=== PATIENT | female | born 2000 | race Caucasian/White ===

== ENCOUNTER 2020-05-04 12:46 | Outpatient (CLI) | payer BC, OTHER, SELFPAY ==
--- NOTE | ~2020-05-04 | US_ITS ---
EXAMINATION: US pelvic complete w TV DATE: 05/04/2020 13:27 INDICATION: Pelvic pain Comparison:No prior studies for comparison. TECHNIQUE: Multiple transabdominal and endovaginal sonographic images of the pelvis performed. FINDINGS: The uterus measures 7.8 x 4.7 x 3.7 cm. The endometrial complex measures 5 mm. The right ovary measures 2.7 x 2 x 2.2 cm and the left ovary measures 2.7 x 2.1 x 1.6 cm. There are small follicles in each ovary. There is trace free fluid in the pelvis. There are no abnormal masses seen on either side. IMPRESSION: 1. Unremarkable pelvic ultrasound Reviewed, dictated and finalized at location B.
== END 2020-05-04 12:47 | disposition home or self-care (01) ==
LOC: ANHIMG 12:51
PROVIDERS: PCP Family Medicine; Visit Provider Obstetrics & Gynecology
DX: R10.2 Pelvic and perineal pain (principal)
CPT/HCPCS: 76830; 76856

== ENCOUNTER 2022-04-18 16:36 | Emergency (ER) | payer OTHER, BC, SELFPAY ==
[2022-04-18 17:41] VITALS: BP 132/70; PULSE 76; RESP 16; TEMP 36.3; O2SAT 100
--- NOTE | 2022-04-18 18:18 | ECG_ITS ---
Measurements Intervals [place] Rate: 64 P: 31 TX: 154 QRS: 60 QRSD: 90 T: 46 QT: 402 QTc: 415 Interpretive Statements SINUS RHYTHM NO PREVIOUS ECG AVAILABLE FOR COMPARISON Electronically Signed On 04-19-2022 17:11:30 CDT by Mike Lawson M.D.
--- NOTE | 2022-04-18 18:19 | ED.HA ---
HPI - Headache General Chief Complaint: Headache Stated Complaint: RAYA 2 weeks Time Seen by Provider: 04/18/22 18:00 Source: patient Mode of arrival: ambulatory Limitations: no limitations History of Present Illness HPI Narrative: Patient is a 22-year-old female who presents the ED with report of a persistent headache for the last 2 weeks. Patient reports she woke up 2 weeks ago with a headache in her right-sided head. She states pain has been persistent since then. Denies any worsening of the pain over the last 2 weeks. She has tried aspirin and ibuprofen at home without much relief. She has not taken anything for pain today. Intermittent photophobia, nausea, dizziness, lightheadedness, and room spinning sensation associated with the headache. Denies any vomiting, fevers, neck pain, abdominal pain, vision changes, weakness, numbness. Related Data Home Medications Medication Instructions Recorded Confirmed No Home Medications 03/02/21 04/18/22 Allergies Allergy/AdvReac Type Severity Reaction Status Date / Time No Known Allergies Allergy Unknown Verified 04/18/22 18:01 Review of Systems Review of Systems: CONSTITUTIONAL: Denies fever, chills, or sweats. EYES: Reports photophobia. Denies visual changes. GASTROINTESTINAL: Reports nausea. Denies abdominal pain, vomiting. MUSCULOSKELETAL: Denies neck pain, back pain. NEUROLOGIC: Reports RAYA, dizziness, lightheadedness. Denies syncope, numbness, or weakness. All systems reviewed & are unremarkable except as noted in HPI and below PMFSH Past Medical History Medical History No pertinent past medical history Surgical History Surgical History (Updated 04/18/22 @ 18:34 by Anuradha Mcconnell PA-C) No pertinent past surgical history Family History Family History Mother Hypertension Patient's mother is in good health Father Patient's father is in good health Sibling Patient's brother is in good health Grandparent Lung cancer Social History Social History Smoking status: Current some day smoker (social ) Tobacco type: e-cigarettes/vaping Second hand tobacco smoke exposure: No Smoking end date: 11/12/18 Alcohol intake: current Drinks per week: 1 Substance use: never Substance use type: does not use Exam Narrative: GENERAL: Well appearing, well-nourished, non-toxic, in no acute distress. HEAD: Normocephalic, atraumatic. EYES: PERRL/EOMI, conjunctivae clear bilaterally. No nystagmus. EARS: TMS clear, with good light reflex. No erythema or bulging. NECK: Supple. No adenopathy, no masses. Full range of motion. No midline tenderness. No meningeal signs. RESPIRATORY: Airway patent, respirations nonlabored. Clear to auscultation bilaterally, no rales, rhonchi, wheezing. CARDIOVASCULAR: Regular rate and rhythm without murmurs, rubs, or gallops. Peripheral pulses 2+ and equal bilaterally. ABDOMINAL: Soft, nontender, nondistended, no hepatosplenomegaly. Normoactive BS. MUSCULOSKELETAL: Moves all extremities. Strength/ROM intact without gross deformities. SKIN: Warm, dry, normal color. No rashes. NEURO: A&O X3. Speech clear. Follows commands. CN II-XII intact. Sensation grossly intact. Steady gait. No ataxic movements. Strength 5/5 in upper and lower extremities bilaterally. Equal manager basketball strength bilaterally. PSYCHIATRIC: Appropriate mood and affect. Normal interaction. Course Vital Signs Vital signs: Vital Signs Temperature 97.3 F L 04/18/22 17:41 Pulse Rate 76 04/18/22 17:41 Respiratory Rate 16 04/18/22 17:41 Blood Pressure 132/70 04/18/22 17:41 Pulse Oximetry 100 04/18/22 17:41 Temperature 97.3 F L 04/18/22 17:41 Pulse Rate 76 04/18/22 20:45 Respiratory Rate 16 04/18/22 17:41 Blood Pressure 129/76 04/18/22 20:45 Pulse Oximetry 100 1
[2022-04-18] MEDS: SODIUM CHLORIDE 0.9% IV 1,000 ML 999 ML IV CONT (18:51)
[2022-04-18] MEDS: KETOROLAC 30 MG/ML VIAL (*BKC) IV PUSH (18:52)
[2022-04-18] MEDS: METOCLOPRAMIDE HCL INJ 10 MG/2 ML VIAL IV PUSH (18:53)
[2022-04-18] MEDS: diphenhydrAMINE HCl INJ 50 MG/ML VIAL 25 MG IV PUSH (18:53)
[2022-04-18 20:43] VITALS: BP 137/67; PULSE 63
[2022-04-18 20:44] VITALS: BP 132/70; PULSE 64
[2022-04-18 20:45] VITALS: BP 129/76; PULSE 76
== END 2022-04-18 21:07 | disposition home or self-care (01) ==
PROVIDERS: Emergency Provider Emergency Medicine; PCP Family Medicine
DX: R51.9 Headache, unspecified (principal)
CPT/HCPCS: 93005; 96361; 96374; 96375; 99284; J0131; J1100; J1200; J1885; J2765; J7030

== ENCOUNTER → 2022-07-23 09:22 | Outpatient (CLI) | payer OTHER, BC, SELFPAY ==
--- NOTE | ~2022-07-23 | MR_ITS ---
EXAMINATION: MR brain/brain stem wo con DATE: 07/23/2022 10:06 INDICATION: Migraine headache. TECHNIQUE: Magnetic resonance imaging (MRI) of the brain and brainstem was performed without intraven ous contrast. COMPARISON: None. FINDINGS: There is no intracranial hemorrhage, acute infarction, or abnormal intracranial mass lesion . The ventricles are normal in size. The paranasal sinuses are clear. The orbits are normal. The mast oid air cells are normal. IMPRESSION: 1. Normal brain. Reviewed, dictated and finalized at location A. L BUFFER IMPRESSION: 1. Normal brain.
== END ==
PROVIDERS: PCP Family Medicine; Visit Provider Physician Assistant Medical
DX: G43.109 Migraine with aura, not intractable, without status migrainosus (principal); R42 Dizziness and giddiness
CPT/HCPCS: 70551

== ENCOUNTER 2022-12-28 14:05 | Outpatient (CLI) | payer OTHER, BC, SELFPAY | END 2022-12-28 14:06 | disposition home or self-care (01) | LOC: ANHLAB 14:07 | PROVIDERS: PCP Family Medicine; Visit Provider Obstetrics & Gynecology | DX: R30.0 Dysuria (principal) | CPT/HCPCS: 87086 ==

== ENCOUNTER 2023-04-25 11:12 | Outpatient (CLI) | payer BC, OTHER, SELFPAY ==
[2023-04-25 12:42] LABS: Basophils Percent Auto 0.2 % (0.2-1.2); Eosinophils Absolute Auto 0.1 K/mm3 (0-0.3); Eosinophils Percent Auto 0.7 % (0-4.4); Hemoglobin 12.7 g/dL (12.0-15.0); Immature Granulocyte Absolute 0.05 K/mm3 (0.00-0.031); Immature Granulocyte Percent A 0.6 % (0-0.5); Lymphocytes Absolute Auto 1.06 K/mm3 (0.9-3.2); Lymphocytes Percent Auto 11.8 % (18.3-44.2); Mean Corpuscular HGB Conc 33.4 g/dl (32-36); Mean Corpuscular Hemoglobin 32.7 pg (26-34); Mean Corpuscular Volume 97.9 fl (80-100); Mean Platelet Volume 9.6 fl (7.4-10.4); Monocytes Absolute Auto 0.5 K/mm3 (0.1-0.6); Neutrophils Absolute Auto 7.4 K/mm3 (1.3-6.7); Neutrophils Percent Auto 81.7 % (45.5-73.1); Platelet Count Result 240 k/mm3 (150-375); Red Blood Count 3.88 M/mm3 (4.2-5.4); Red Cell Distribution Width 12.9 % (11.5-14.5)
[2023-04-25 12:52] LABS: Glucose 1 Hour PP 50gm Dose 162 mg/dL
[2023-04-25 13:34] LABS: HIV 1/2 Ab P24 Ag Result Negative (Negative)
== END 2023-04-25 11:13 | disposition home or self-care (01) ==
LOC: ANHLAB 11:14
PROVIDERS: PCP Family Medicine; Visit Provider Obstetrics & Gynecology
DX: Z34.90 Encounter for supervision of normal pregnancy, unspecified, unspecified trimester (principal); Z3A.00 Weeks of gestation of pregnancy not specified
CPT/HCPCS: 36415; 82947; 85025; 86703; G0432

== ENCOUNTER 2023-06-13 11:15 | Outpatient (CLI) | payer OTHER, BC, SELFPAY ==
[2023-06-13] VITALS (7 sets, daily range): BP systolic 94–156; BP diastolic 68–93; PULSE 74–98
[2023-06-13 12:04] LABS: Basophils Percent Auto 0.1 % (0.2-1.2); Eosinophils Absolute Auto 0.1 K/mm3 (0-0.3); Eosinophils Percent Auto 0.8 % (0-4.4); Hematocrit 37.6 % (37.0-47.0); Hemoglobin 12.4 g/dL (12.0-15.0); Immature Granulocyte Absolute 0.05 K/mm3 (0.00-0.031); Immature Granulocyte Percent A 0.6 % (0-0.5); Lymphocytes Absolute Auto 1.43 K/mm3 (0.9-3.2); Lymphocytes Percent Auto 16.2 % (18.3-44.2); Mean Corpuscular Hemoglobin 32.2 pg (26-34); Mean Corpuscular Volume 97.7 fl (80-100); Monocytes Absolute Auto 0.7 K/mm3 (0.1-0.6); Monocytes Percent Auto 7.7 % (2.6-8.5); Neutrophils Absolute Auto 6.6 K/mm3 (1.3-6.7); Neutrophils Percent Auto 74.6 % (45.5-73.1); Platelet Count Result 212 k/mm3 (150-375); Red Blood Count 3.85 M/mm3 (4.2-5.4); Red Cell Distribution Width 12.9 % (11.5-14.5); White Blood Count 8.8 K/mm3 (4.5-10.0)
[2023-06-13 12:12] LABS: Alanine Aminotransferase 18 U/L (6-35); Albumin Level 3.3 g/dL (3.5-5.1); Alkaline Phosphatase 158 U/L (38-126); Anion Gap 9 mmol/L (8-16); Aspartate Amino Transferase 20 U/L (14-36); Bilirubin,Total 0.3 mg/dL (0.2-1.3); Blood Urea Nitrogen 7 mg/dL (7-17); Carbon Dioxide 21 mmol/L (22-30); Chloride 105 mmol/L (98-107); Estimated Glomerular Filt Rate > 60; Glucose 130 mg/dL (65-110); Sodium 135 mmol/L (137-145); Uric Acid 5.6 mg/dL (2.5-7.5)
[2023-06-13 12:17] LABS: Creatinine Urine 330.8 mg/dL; Total Protein Urine Random 35 mg/dL; Ur Ttl Prot Creatinine Ratio 0.11 mg/mg (0-0.20)
[2023-06-13 12:37] LABS: Appearance Urine Turbid (Clear); Bacteria Urine 4+ /hpf; Bilirubin Urine Negative (Negative); Blood Urine Negative (Negative); Color Urine Dark Yellow (Yellow); Glucose Urine UA Negative (Negative); Ketones Urine Trace mg/dL (Negative); Leukocyte Esterase Ur 1+ LEU/UL (NEGATIVE); Need Manual Microscopic Reviewed; Nitrate Urine Negative (Negative); Protein Urine 2+ mg/dL (Negative); Specific Grav Ur 1.033 (1.001-1.035); Squamous Epithelial Cell Urine Moderate /hpf (Few); WBC Urine 21-50 /hpf (0-3)
--- NOTE | 2023-06-13 12:39 | PC.NURSE ---
Dr. Salter notified of lab results, NST, and vital signs. Orders given to have patient come back to unit on 06/17 for NST/BPP. Okay to discharge. Instructions given on when to return to hospital.
[2023-06-13 12:48] LABS: Add Urine Microscopic? YES
== END 2023-06-13 13:00 | disposition home or self-care (01) ==
LOC: ANHOBOP 11:22 → ANHOBPP 11:23
PROVIDERS: Visit Provider Obstetrics & Gynecology
DX: O13.9 Gestational [pregnancy-induced] hypertension without significant proteinuria, unspecified trimester (principal); Z3A.00 Weeks of gestation of pregnancy not specified
CPT/HCPCS: 36415; 59025; 80053; 81001; 82570; 84156; 84550; 85025; 87086; 87088; 99199

== ENCOUNTER 2023-06-17 14:35 | Inpatient (IN) | payer BC, SELFPAY ==
[2023-06-17] VITALS (22 sets, daily range): BP systolic 126–157; BP diastolic 75–99; PULSE 82–101; TEMP 36.6–37.3; BMI 44.0
--- NOTE | ~2023-06-17 | US_ITS ---
EXAMINATION: US OB BPP wo non-stress DATE: 06/17/2023 12:43 INDICATION: Hypertension. TECHNIQUE: Real-time pelvic ultrasound was performed. The interpreting radiologist was not present fo r the study. COMPARISON: Ultrasound dated FINDINGS: There is a single living fetus in vertex presentation. The placenta is anterior. 163 heart rat e is 163 beats per minute (bpm). Biophysical profile performed by the technologist: breathing (30 sec sustained breathing in 30 minutes): 2 out of 2 movement (3 gross body movements in 30 minutes): 2 out of 2 tone (one episode of ablzkeo-gxqpkjiah-ejfvekx limb movement): 2 out of 2 Amniotic fluid pocket (2 cm): 2 out of 2 Total score: 8 out of 8 IMPRESSION: 1. Single living intrauterine in vertex presentation with heart rate of 163 bpm. 2. Normal placenta. 3. Biophysical profile 8 out of 8. Reviewed, dictated and finalized at location B. TAIN PEN TURNER
[2023-06-17 13:04] LABS: Basophils Percent Auto 0.2 % (0.2-1.2); Eosinophils Absolute Auto 0.1 K/mm3 (0-0.3); Eosinophils Percent Auto 0.8 % (0-4.4); Hematocrit 37.8 % (37.0-47.0); Hemoglobin 12.3 g/dL (12.0-15.0); Immature Granulocyte Absolute 0.04 K/mm3 (0.00-0.031); Immature Granulocyte Percent A 0.4 % (0-0.5); Lymphocytes Absolute Auto 1.38 K/mm3 (0.9-3.2); Lymphocytes Percent Auto 15.2 % (18.3-44.2); Mean Corpuscular HGB Conc 32.5 g/dl (32-36); Mean Corpuscular Hemoglobin 31.5 pg (26-34); Mean Corpuscular Volume 96.7 fl (80-100); Monocytes Absolute Auto 0.9 K/mm3 (0.1-0.6); Monocytes Percent Auto 9.6 % (2.6-8.5); Neutrophils Absolute Auto 6.7 K/mm3 (1.3-6.7); Neutrophils Percent Auto 73.8 % (45.5-73.1); Platelet Count Result 204 k/mm3 (150-375); Red Blood Count 3.91 M/mm3 (4.2-5.4); Red Cell Distribution Width 12.8 % (11.5-14.5); White Blood Count 9.1 K/mm3 (4.5-10.0)
[2023-06-17 13:14] LABS: Alanine Aminotransferase 17 U/L (6-35); Albumin Level 3.3 g/dL (3.5-5.1); Alkaline Phosphatase 162 U/L (38-126); Anion Gap 8 mmol/L (8-16); Aspartate Amino Transferase 21 U/L (14-36); Bilirubin,Total 0.3 mg/dL (0.2-1.3); Blood Urea Nitrogen 7 mg/dL (7-17); Calcium 8.8 mg/dL (8.4-10.2); Carbon Dioxide 22 mmol/L (22-30); Chloride 104 mmol/L (98-107); Estimated Glomerular Filt Rate > 60; Glucose 86 mg/dL (65-110); Potassium 3.8 mmol/L (3.4-5.0); Sodium 134 mmol/L (137-145); Uric Acid 5.7 mg/dL (2.5-7.5)
[2023-06-17 13:17] LABS: Appearance Urine Turbid (Clear); Bacteria Urine 4+ /hpf; Bilirubin Urine 1+ (Negative); Blood Urine Negative (Negative); Color Urine Dark Yellow (Yellow); Glucose Urine UA Negative (Negative); Hyaline Casts Urine Present /lpf; Ketones Urine Trace mg/dL (Negative); Leukocyte Esterase Ur Trace LEU/UL (NEGATIVE); Need Manual Microscopic Reviewed; Nitrate Urine Negative (Negative); Protein Urine 3+ mg/dL (Negative); Specific Grav Ur 1.032 (1.001-1.035); Squamous Epithelial Cell Urine Moderate /hpf (Few); WBC Urine 21-50 /hpf (0-3)
[2023-06-17 13:20] LABS: Total Protein Urine Random 95 mg/dL
[2023-06-17 13:27] LABS: Add Urine Microscopic? YES
[2023-06-17 14:21] LABS: Creatinine Urine 390.9 mg/dL; Ur Ttl Prot Creatinine Ratio 0.24 mg/mg (0-0.20)
--- NOTE | 2023-06-17 14:34 | PC.NURSE ---
Dr Salter notified of labs and BP's, orders received for IOL.
[2023-06-17 16:17] LABS: Rapid Plasma Reagin Non-Reactive (NonReactive)
--- NOTE | 2023-06-17 16:20 | LDADM ---
This patient, Barbra Evans, was admitted to Labor/Delivery/Recovery 107 on 06/17/23 at 14:35. Plans for labor, pain management and were discussed with patient. Patient/family oriented to hospital policies and general routines including ID bracelet, bed and alarms, visiting hours, pain management, procedures, bathroom and other care routines, personal items, smoking policy, room service/diet and guest tray routines, security routines, and visiting hours. Patient/Family are encouraged to report perceived risks to care and to ask questions if they do not understand what they are told or what they should do. See OBIX for further documentation.
[2023-06-17] MEDS: DINOPROSTONE 10 MG VAG INSERT VAGINAL (16:28)
--- NOTE | 2023-06-17 16:36 | PM.IMHP ---
H&P: HPI History of Present Illness Date/Time: 06/17/23 16:36 Chief Complaint: Elevated BP Narrative: Barbra is a 23yo @ 37.3wks who presented for repeat ANT. She was seen on 06/13/23 for routine OB care and was found to have mildly elevated BPs and 3+ protein on office Udip. She was sent to L&D for PEC w/u; which was negative. I did have her return today for additional testing, where her labs/US were normal (urine p/C increased from 0.11 -> 0.24), but her BPs remained in the mild range, giving her a diagnosis of GHTN. She reports good movement. Irregular ctxs. No VB or LOF. No severe symptoms of PEC. Her is complicated by: - Gestational Hypertension - Elevated 1 hour glucose; 3 hour normal Review of Systems Constitutional: Constitutional: Denies chills, Denies fever(s) and Denies headache(s) Eyes: Eyes: Denies change in vision ENT: Denies headache(s) Cardiovascular: Cardiovascular: Denies chest pain and Denies dyspnea Respiratory: Respiratory: Denies dyspnea Genitourinary: Genitourinary: Denies abnormal vaginal bleeding and Denies vaginal discharge Neurologic: Denies headache(s) Psychiatric: Psychiatric: Denies anxiety and Denies depression [facility] Past Medical History Medical History Anxiety Dysuria No pertinent past medical history Surgical History Surgical History H/O gynecological procedure laura insertion - 2017 laura removal - 2020 No pertinent past surgical history Family History Family History Mother Hypertension Patient's mother is in good health Father Patient's father is in good health Sibling Patient's brother is in good health Grandparent Lung cancer Social History Social History Smoking status: Former smoker Tobacco type: e-cigarettes/vaping Second hand tobacco smoke exposure: No Smoking end date: 11/12/18 Alcohol intake: never Drinks per week: 0 Substance use: never Substance use type: does not use Lack of Transportation: YES Lack of Food: Never True Current Housing: I Have Housing Concerned About Future Housing: No Difficulty Paying Gas/Electric Bills: No Difficulty Paying for Meds: No Currently Unemployed: No Education: Associate Degree Difficulty w/ Childcare or Family Care: No Living arrangements: with family 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 Gender identity (if verbalized by the patient): Female Sexual Orientation (if Verbalized by the Patient): Straight or Heterosexual Spiritual care concerns: No Agree to blood products: Yes Meds Home Medications and Allergies Home Medications Medication Instructions Recorded Confirmed Type vitamins-iron fumarate 65 1 tablet PO DAILY 12/04/22 06/17/23 History mg iron-folic acid 1 mg tablet metoclopramide HCl 5 mg tablet 5 mg PO DAILY 01/09/23 06/13/23 History (Reglan) Allergies Allergy/AdvReac Type Severity Reaction Status Date / Time No Known Allergies Allergy Unknown Verified 06/13/23 10:20 Vital Signs Vital Signs - 24 hr 06/17/23 11:31 06/17/23 11:46 06/17/23 12:01 Pulse Rate 97 86 82 Blood Pressure 139/83 133/81 140/85 Oxygen Delivery 06/17/23 14:31 06/17/23 16:18 Pulse Rate 85 Blood Pressure 149/79 H Oxygen Delivery Room Air Exam Const: General: cooperative, no acute distress and obese Nutritional Appearance: obese Orientation/consciousness: patient oriented x3 Resp: Effort & Inspection: normal respiratory effort Cardio: Rate: regular rate GI: GI Palp: No abdominal tenderness : Other: FHT's: 140's/ mod baldemar/ + accels/ no decels - cat 1 TOCO: irregular ctxs Cervix: 1.5/50/-2 Membranes: intact Presentation: cephalic Skin:
--- NOTE | 2023-06-17 16:42 | WPDHPUPDATE1 ---
History and Physical Update Update Date/Time: 06/17/23 16:42 History and Physical has been reviewed, including an updated exam of the patient. There are NO changes in the patient's condition. Risks, benefits, and alternatives have been discussed and questions answered. Patient agrees to proceed with procedure.
--- NOTE | 2023-06-17 17:48 | WPDANESEPPF ---
Anes - Initial Pre Proc Eval Procedure: labor epidural Date/Time: 06/17/23 17:48 Surgeon: Carol Salter MD Pre Op Diagnosis: labor pain Pre Op Diagnosis: PIH Patient Data Age: 23 Gender: F Height: 1.65 m Weight: 120 kg Last Vital Signs Pulse 101 H 06/17/23 17:31 BP 134/84 06/17/23 17:31 O2 Del Method Room Air 06/17/23 16:18 Allergies Allergy/AdvReac Type Severity Reaction Status Date / Time No Known Allergies Allergy Unknown Verified 06/13/23 10:20 Home Medications Medication Instructions Recorded Confirmed Type vitamins-iron fumarate 65 1 tablet PO DAILY 12/04/22 06/17/23 History mg iron-folic acid 1 mg tablet metoclopramide HCl 5 mg tablet 5 mg PO DAILY 01/09/23 06/13/23 History (Reglan) Laboratory Tests 06/17/23 06/17/23 12:52 15:26 WBC 9.1 K/mm3 (4.5-10.0) RBC 3.91 L M/mm3 (4.2-5.4) Hgb 12.3 g/dL (12.0-15.0) Hct 37.8 % (37.0-47.0) MCV 96.7 fl (80-100) MCH 31.5 pg (26-34) MCHC 32.5 g/dl (32-36) RDW 12.8 % (11.5-14.5) Plt Count 204 k/mm3 (150-375) MPV 11.0 H fl (7.4-10.4) Immature Gran % (Auto) 0.4 % (0-0.5) Neut % (Auto) 73.8 H % (45.5-73.1) Lymph % (Auto) 15.2 L % (18.3-44.2) Christian % (Auto) 9.6 H % (2.6-8.5) Eos % (Auto) 0.8 % (0-4.4) Baso % (Auto) 0.2 % (0.2-1.2) Lymph # (Auto) 1.38 K/mm3 (0.9-3.2) Christian # (Auto) 0.9 H K/mm3 (0.1-0.6) Eos # (Auto) 0.1 K/mm3 (0-0.3) Baso # (Auto) 0.0 K/mm3 (0.0-0.1) Abs Immat Gran (auto) 0.04 H K/mm3 (0.00-0.031) Absolute Neuts (auto) 6.7 K/mm3 (1.3-6.7) Absolute Nucleated RBC 0.0 K/mm3 (0.0-0.012) Nucleated RBC % 0.0 % (0.0-0.2) Sodium 134 L mmol/L (137-145) Potassium 3.8 mmol/L (3.4-5.0) Chloride 104 mmol/L (98-107) Carbon Dioxide 22 mmol/L (22-30) Anion Gap 8 mmol/L (8-16) BUN 7 mg/dL (7-17) Creatinine 0.50 L mg/dL (0.7-1.0) Estim Creat Clear Calc Not Reportable Estimated GFR > 60 (59 - ) Glucose 86 mg/dL (65-110) Uric Acid 5.7 mg/dL (2.5-7.5) Calcium 8.8 mg/dL (8.4-10.2) Total Bilirubin 0.3 mg/dL (0.2-1.3) AST 21 U/L (14-36) ALT 17 U/L (6-35) Alkaline Phosphatase 162 H U/L (38-126) Total Protein 6.0 L g/dL (6.3-8.2) Albumin 3.3 L g/dL (3.5-5.1) Urine Color Dark yellow (Yellow) Urine Appearance Turbid H (Clear) Urine pH 6.0 (5.0-9.0) Ur Specific [place] 1.032 (1.001-1.035) Urine Protein 3+ H mg/dL (Negative) Urine Glucose (UA) Negative mg/dL (Negative) Urine Ketones Trace H mg/dL (Negative) Ur Blood (Man) Negative (Negative) Urine Nitrate Negative (Negative) Urine Bilirubin 1+ H (Negative) Urine Urobilinogen 1.0 mg/dL (<2.0) Ur Leukocyte Esterase Trace H ARLENE/UL (NEGATIVE) Add Ur Microanalysis Reviewed Urine RBC 3-5 H /hpf (0-2) Urine WBC 21-50 /hpf (0-3) Ur Squamous Epith Cells Moderate /hpf (Few) Urine Bacteria 4+ H /hpf Urine Casts 11-20 Hyaline Casts Present /lpf (None) U Random Total Protein 95 mg/dL Urine Creatinine 390.9 mg/dL Protein/Creat Ratio 2 0.24 H mg/mg (0-0.20) RPR Non-reactive (NonReactive) Blood Type O Positive Antibody Screen Negative Patient hx anesthesia problems: none Family hx anesthesia problems: none Results Review: All pre-operative results and documents have been reviewed as part of the pre-operative evaluation. [facility] Past Medical History Medical History (Updated 06/17/23 @ 17:48 by Tato Posada DO) Anxiety Dysuria No pertinent past medical history PIH ( induced
[2023-06-18] VITALS (225 sets, daily range): BP systolic 105–181; BP diastolic 60–105; PULSE 75–167; RESP 16–20; TEMP 36.3–37.2; O2SAT 95–100
[2023-06-18] MEDS: LACTATED RINGERS 1,000 ML 125 ML IV CONT ×3 (00:33→13:00)
[2023-06-18] MEDS: OXYTOCIN 30 UNITS/NS 500 ML 30 UNITS/500 ML BAG 6 UNITS IV CONT (04:29)
[2023-06-18] MEDS: LABETALOL HCL INJ 100 MG/20 ML VIAL 40 MG IV PUSH (06:05)
[2023-06-18] MEDS: LABETALOL HCL INJ 100 MG/20 ML VIAL 20 MG IV PUSH (06:26)
--- NOTE | 2023-06-18 07:19 | PM.OBPNLAB ---
Pain Control Date/time seen: 06/18/23 07:19 Pain control: epidural Pelvic Exam Dilation (cm): 4 Effacement (%): 70 station: -2 Amniotic membrane status: Ruptured (AROM, clear 0715) Contractions Monitor mode: Internal Contraction frequency: 2 Contraction pattern: Regular Contraction intensity: Mild Status status: Category ll Comments: having periods of decreased variability; responded well to AROM/stimulation. No decels Assessment and Plan Pitocin rate (mU/min): 6 Assessment: induction ongoing Plan: continuous present management Comments: While getting her epidural, she was severely hypertensive starting at 0503, anesthesia did give small doses of labetalol. I was notified at 0524, and did instruct the night nurse to give 20mg of labetalol and start the hypertensive protocol. She continued being severely hypertensive and was given 40mg as well. After nursing shift change, I was notified by the day nurse that a small cuff was being used on her forearm. The day nurse switched to a normal cuff on her upper arm and BPs have been normal since. Will continue to monitor closely, if any additional severe range BPs, will then start magnesium prophylaxis; pt currently asymptomatic.
[2023-06-18] MEDS: DEXTROSE 5%/0.45% SOD CHL 1,000 ML 999 ML (08:13)
--- NOTE | 2023-06-18 12:13 | PM.OBPNLAB ---
Pain Control Date/time seen: 06/18/23 12:13 Pain control: epidural Pelvic Exam Dilation (cm): 9 Effacement (%): 100 station: 0 Amniotic membrane status: Ruptured (AROM, clear 0715) Contractions Monitor mode: Internal Contraction frequency: 2 Contraction pattern: Regular Contraction intensity: Moderate Status status: Category l Assessment and Plan Pitocin rate (mU/min): 4 Assessment: active labor Comments: - anticipate soon
--- NOTE | 2023-06-18 15:17 | PM.OBPRVD ---
OB - Vaginal Delivery Note Procedure Delivery date: 06/18/23 Events: Gestational Hypertension Induction method: Per Cervidil Protocol Delivery augmentation: Rupture of Membranes and Pitocin Delivery monitor: External FHT and Internal Uterine Route of delivery: Laceration Description: Vaginal Delivery repair: vicryl Specimen: Yes (placenta) Quantitative Blood Loss (ml): 300 Anesthesia type: Epidural Disposition: Floor Complications: No immediate complications Baby Date of : 06/18/23 Time of : 14:53 Weeks of gestation at delivery: 37 (4) Infant gender: Male Weight (pounds): 7 Weight (ounces): 9 presentation: vertex Placenta delivery description: Expressed Cord Vessel Description: 3 Vessels, Nuchal Cord and Loose score one minute: 8 score five minutes: 8 Narrative: Barbra progressed to complete dilation with strong desire to push. She pushed for approximately 40 minutes with good maternal effort. She delivered the head over intact perineum. Nuchal cord was noted but loose and delivered through. She easily delivered the 's shoulders and body without complication. The infant was immediately placed skin to skin and had spontaneous cry. His mouth and nose were bulb suction. Delayed cord clamping was performed. The umbilical cord was then doubly clamped and cut. Segment of cord was collected for cord gases. The remaining cord blood was collected for typing. With Pitocin running and gentle downward traction on the cord, the placenta delivered without complications. She was examined and a a left vaginal laceration was noted. It was repaired in the normal fashion using 2-0 Vicryl. Bimanual massage was performed and a small clot was removed by good uterine tone with minimal bleeding was then noted. Sponge, lap, instrument, needle counts were correct at the end of the procedure. Mom and baby were left bonding in the birthing suite in stable condition. [facility] Delivery Billing Delivery Delivery: Delivery Charge
[2023-06-18] MEDS: OXYTOCIN 30 UNITS/NS 500 ML 30 UNITS/500 ML BAG 125 UNITS IV CONT (15:45)
--- NOTE | 2023-06-18 17:40 | PC.NURSE ---
Patient transferred to post room #291 via wheelchair. Support person present. Oriented to unit, room, information board, rooming in, admission packet and security measures. Patient verbalizes understanding.
[2023-06-19] VITALS (8 sets, daily range): BP systolic 132–157; BP diastolic 75–100; PULSE 86–114; RESP 16–18; TEMP 36.8–37.3; O2SAT 98
[2023-06-19] MEDS: LANOLIN (LANSINOH) 7.5 GM CREAM 1 APPLIC TOPICAL (04:10)
[2023-06-19 05:03] LABS: Basophils Percent Auto 0.2 % (0.2-1.2); Eosinophils Percent Auto 0.1 % (0-4.4); Hematocrit 31.4 % (37.0-47.0); Hemoglobin 10.4 g/dL (12.0-15.0); Immature Granulocyte Absolute 0.06 K/mm3 (0.00-0.031); Immature Granulocyte Percent A 0.4 % (0-0.5); Lymphocytes Absolute Auto 1.66 K/mm3 (0.9-3.2); Lymphocytes Percent Auto 12.1 % (18.3-44.2); Mean Corpuscular HGB Conc 33.1 g/dl (32-36); Mean Corpuscular Volume 96.6 fl (80-100); Mean Platelet Volume 11.5 fl (7.4-10.4); Monocytes Absolute Auto 1.4 K/mm3 (0.1-0.6); Monocytes Percent Auto 9.9 % (2.6-8.5); Neutrophils Absolute Auto 10.6 K/mm3 (1.3-6.7); Neutrophils Percent Auto 77.3 % (45.5-73.1); Platelet Count Result 176 k/mm3 (150-375); Red Blood Count 3.25 M/mm3 (4.2-5.4); Red Cell Distribution Width 12.9 % (11.5-14.5); White Blood Count 13.8 K/mm3 (4.5-10.0)
[2023-06-19 05:13] LABS: Alanine Aminotransferase 13 U/L (6-35); Albumin Level 2.6 g/dL (3.5-5.1); Alkaline Phosphatase 140 U/L (38-126); Anion Gap 5 mmol/L (8-16); Aspartate Amino Transferase 24 U/L (14-36); Bilirubin,Total 0.4 mg/dL (0.2-1.3); Blood Urea Nitrogen 6 mg/dL (7-17); Calcium 8.5 mg/dL (8.4-10.2); Carbon Dioxide 23 mmol/L (22-30); Chloride 106 mmol/L (98-107); Estimated CRCL calculation 189 ml/min; Estimated Glomerular Filt Rate > 60; Glucose 74 mg/dL (65-110); Potassium 3.8 mmol/L (3.4-5.0); Sodium 134 mmol/L (137-145); Uric Acid 5.6 mg/dL (2.5-7.5)
--- NOTE | 2023-06-19 07:09 | PM.OBPNVD ---
OB - PN: Subj Subjective Date/time seen: 06/19/23 07:09 Narrative: PPD#1 Barbra reports doing well today. 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 Her pain is controlled. She is tolerating regular diet, voiding, passing gas, and ambulating without issues. She is breast feeding. She would like her son circumcised. No RAYA, vision changes, CP or SOB. OB - PN: Obj Data Labs 06/19/23 03:49 06/19/23 03:49 Labs: Laboratory Results - last 24 hr 06/19/23 03:49 WBC 13.8 H RBC 3.25 L Hgb 10.4 L Hct 31.4 L MCV 96.6 MCH 32.0 MCHC 33.1 RDW 12.9 Plt Count 176 MPV 11.5 H Immature Gran % (Auto) 0.4 Neut % (Auto) 77.3 H Lymph % (Auto) 12.1 L [place] % (Auto) 9.9 H Eos % (Auto) 0.1 Baso % (Auto) 0.2 Lymph # (Auto) 1.66 [place] # (Auto) 1.4 H Eos # (Auto) 0.0 Baso # (Auto) 0.0 Abs Immat Gran (auto) 0.06 H Absolute Neuts (auto) 10.6 H Absolute Nucleated RBC 0.0 Nucleated RBC % 0.0 Sodium 134 L Potassium 3.8 Chloride 106 Carbon Dioxide 23 Anion Gap 5 L BUN 6 L Creatinine 0.50 L Estim Creat Clear Calc 189 Estimated GFR > 60 Glucose 74 Uric Acid 5.6 Calcium 8.5 Total Bilirubin 0.4 AST 24 ALT 13 Alkaline Phosphatase 140 H Total Protein 5.0 L Albumin 2.6 L OB - PN A/P Assessment and Plan (1) Normal vaginal delivery of first : Code(s): O80 - Encounter for full-term uncomplicated delivery Status: Acute (2) Gestational hypertension affecting first : Code(s): O13.9 - Gestational [-induced] hypertension without significant proteinuria, unspecified trimester Status: Acute Plan day: 1 Plan: routine care Comments: - will monitor BP's, if persistently elevated, will start PO anti-hypertensives - circ performed w/o issue Time Spent With Patient Time: Total time spent is greater than 50% in coordination of care (as documented) at patient's floor/unit and/or counseling patient: Review of Systems Constitutional: Constitutional: Denies chills, Denies fever(s) and Denies headache(s) Eyes: Eyes: Denies change in vision ENT: Denies dizziness and Denies headache(s) Cardiovascular: Cardiovascular: Denies chest pain, Denies palpitations and Denies dyspnea Respiratory: Respiratory: Denies cough and Denies dyspnea Gastrointestinal: Gastrointestinal: Denies nausea and Denies vomiting Neurologic: Denies dizziness and Denies headache(s) Endocrine: Endocrine: Denies palpitations Exam Const: General: cooperative, comfortable and no acute distress Orientation/consciousness: patient oriented x3 Resp: Effort & Inspection: normal respiratory effort Auscultation: clear to auscultation bilaterally Cardio: Rate: regular rate GI: Inspection: non-distended GI Palp: No abdominal tenderness and Yes Soft to palpation Auscultation: normal bowel sounds : Other: fundus firm Skin: General skin exam: normal color Neuro: General: patient oriented x3 Extrem: General: normal to inspection Psych: Appearance: grossly normal Affect: normal affect Attitude: cooperative
--- NOTE | 2023-06-19 09:00 | WPDANLDPN2 ---
Anes-Prog Note L&D Date/Time: 06/19/23 09:00 Comfortable throughout: labor and delivery Neuraxial method: epidural Epidural/Spinal procedure site: clean & non-tender Neuro status: Neuro function grossly intact. Cardiovascular status: normal Respiratory status: normal Airway patency: baseline Mental status: baseline Post-Op hydration status: normal Vital Signs: Last Vital Signs Temp 99.1 F 06/19/23 07:50 Pulse 93 06/19/23 07:50 Resp 18 06/19/23 07:50 BP 135/81 06/19/23 07:50 Pulse Ox 98 06/19/23 07:50 O2 Del Method Room Air 06/17/23 16:18 Pain score (VAS): 0 I/O: Intake & Output 06/18/23 06/19/23 06/19/23 23:59 07:59 15:59 Intake Total 500 500 Output Total 1150 Balance 500 -650 Post-procedural complaints: none Patient feedback: Patient satisfied with anesthetic care.
[2023-06-19] MEDS: DOCUSATE SODIUM 100 MG CAPSULE PO (09:11)
[2023-06-19] MEDS: MULTIVIT/MIN/PREN/FOL AC/IRON TABLET 1 TAB PO (09:12)
--- NOTE | 2023-06-19 10:53 | PC.NURSE ---
[id number] Introductions were made, then consulted with patient to assess needs related to . Mother led the conversation with her?plans to feed?her infant and the?experience so far. Encouraged understanding of the benefits of skin to skin (demonstrating unwrapping and placing upright on her chest), stimulating with massage touch, changing positions to encourage wakefulness, how to watch for early feeding cues, responsive feeding, feeding on demand (aiming for 8-12 times in 24 hours, about every 2-3 hours), milk production,hand expression, building/maintaining a milk supply, duration of feeding, signs of adequate intake/output and how to record on the feeding sheet. Mother works well with her with encouragement and education. Reviewed positioning and ear, shoulder, hip alignment, supporting the breast to facilitate a deep latch, asymmetrical latch (off-center), leading with the chin with a big, open, wide gape and body close to mother. latched optimally to the left, then right breast in football position. Education given to the mother of how to visualize the suckling (with good rocking jaw motion), swallows (dropping of the lower jaw) and how to listen for drinking at the breast (the ka sound). is sleeping and reluctant after a circumcision; however, with good deep latching infant demonstrates swallowing.Infant was able to maintain latch without pain to mother protecting the nipple with optimal positioning and latching. Reviewed comfort measures of healing with a warm, wet washcloth to rinse breast, then leave open to air-dry, good handwashing when or touching the breast/nipples to prevent infection. Mother voiced understanding of skin to skin, stimulating with massage touch, responsive feedings, hand expressed colostrum, talking to to encourage if it has been 2 -2.5 hours since the start of the last , to call if infant does not latch, or if there is discomfort with . Resources used for education were facilitated with the mom and baby guide, Inpatient/outpatient resources provided with feeding sheet, name written on the communication board, and the mom/baby guide. Mother voiced understanding of information, demonstrated learning and will call if there is a request for assistance. Reported to the Primary RN.
--- NOTE | 2023-06-19 16:46 | PC.NURSE ---
[id number] Introductions were made, then consulted with patient to assess needs related to . Mother led the conversation with her?plans to feed?her infant and the?experience so far. Encouraged understanding of the benefits of skin to skin (demonstrating unwrapping and placing upright on her chest), stimulating with massage touch, changing positions to encourage wakefulness, how to watch for early feeding cues, responsive feeding, feeding on demand (aiming for 8-12 times in 24 hours, about every 2-3 hours), milk production, hand expression, building/maintaining a milk supply, duration of feeding, signs of adequate intake/output and how to record on the feeding sheet. Mother works well with her infant with encouragement and education. Reviewed positioning and ear, shoulder, hip alignment, supporting the breast to facilitate a deep latch, asymmetrical latch (off-center), leading with the chin with a big, open, wide gape and body close to mother. latched optimally to the left, then the right breast in football position. Education given to the mother of how to visualize the suckling (with good rocking jaw motion), swallows (dropping of the lower jaw) and how to listen for drinking at the breast (the ka sound). Infant was able to maintain latch without pain to mother protecting the nipple with optimal positioning and latching. Reviewed comfort measures of healing with a warm, wet washcloth to rinse breast, then leave open to air-dry, good handwashing when or touching the breast/nipples to prevent infection. Mother voiced understanding of skin to skin, stimulating with massage touch, responsive feedings, hand expressed colostrum, talking to infant to encourage on demand aiming for every 1-3 hours from the start of the last , to call if infant does not latch, or if there is discomfort with . Resources used for education were facilitated with the tool, mom and baby guide, Inpatient/outpatient resources provided with feeding sheet, name written on the communication board, and the mom/baby guide. Parents voiced understanding of information, demonstrated learning and will call if there is a request for assistance. Reported to the Primary RN.
[2023-06-19] MEDS: NIFEdipine 30 MG TAB.ER.24 PO (19:28)
[2023-06-19] MEDS: LABETALOL HCL 100 MG TABLET 200 MG PO (19:28)
[2023-06-20 05:00] VITALS: BP 135/77; PULSE 95
--- NOTE | 2023-06-20 06:32 | P.PNOB_ITS ---
OB - PN: Subj Subjective Date/time seen: 06/20/23 06:32 Narrative: PPD#2 Barbra reports doing well today. 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 Her pain is controlled. She is tolerating regular diet, voiding, passing gas, and ambulating without issues. She is breast feeding. BPs remained high yesterday and she was started on PO anti-hypertensives in the evening; no issues since. OB - PN: Obj Data Labs 06/19/23 03:49 06/19/23 03:49 OB - PN A/P Assessment and Plan (1) Normal vaginal delivery of first : Code(s): O80 - Encounter for full-term uncomplicated delivery Status: Acute (2) Gestational hypertension affecting first : Code(s): O13.9 - Gestational [-induced] hypertension without significant proteinuria, unspecified trimester Status: Acute Plan day: 2 Plan: routine care and discharge home (this PM) Comments: - Will monitor BPs today; continue Adalat 30mg daily; BP check Saturday @ L&D and next week in my office - Pelvic rest; take meds as prescribed - ER return precautions: fever, n/v/abd pain, bleeding, HTN Time Spent With Patient Time: Total time spent is greater than 50% in coordination of care (as documented) at patient's floor/unit and/or counseling patient: Review of Systems Constitutional: Constitutional: Denies chills, Denies fever(s) and Denies headache(s) Eyes: Eyes: Denies change in vision ENT: Denies dizziness and Denies headache(s) Cardiovascular: Cardiovascular: Denies chest pain, Denies palpitations and Denies dyspnea Respiratory: Respiratory: Denies cough and Denies dyspnea Gastrointestinal: Gastrointestinal: Denies nausea and Denies vomiting Neurologic: Denies dizziness and Denies headache(s) Endocrine: Endocrine: Denies palpitations Exam Const: General: cooperative, comfortable and no acute distress Scott entation/consciousness: patient oriented x3 Resp: Effort & Inspection: normal respiratory effort Auscultation: clear to auscultation bilaterally Cardio: Rate: regular rate GI: Inspection: non-distended GI Palp: No abdominal tenderness and Yes Soft to palpation Auscultation: normal bowel sounds : Other: fundus firm Skin: General skin exam: normal color Neuro: General: patient oriented x3 Extrem: General: normal to inspection Psych: Appearance: grossly normal Affect: normal affect Attitude: cooperative
[2023-06-20 07:30] VITALS: BP 146/98; PULSE 87; RESP 18; TEMP 36.9; O2SAT 98
[2023-06-20] MEDS: DOCUSATE SODIUM 100 MG CAPSULE PO (09:15)
[2023-06-20] MEDS: MULTIVIT/MIN/PREN/FOL AC/IRON TABLET 1 TAB PO (09:15)
[2023-06-20] MEDS: IBUPROFEN 600 MG TABLET PO (09:15)
[2023-06-20] MEDS: NIFEdipine 30 MG TAB.ER.24 PO (09:16)
[2023-06-20 12:20] VITALS: BP 155/81; PULSE 120; RESP 16; TEMP 36.6; O2SAT 99
[2023-06-21 15:22] VITALS: BP 176/109; PULSE 107; RESP 18; TEMP 37; O2SAT 100
--- NOTE | 2023-06-23 19:51 | PM.OBDSVD ---
DS: Admitting Diagnosis Discharge Date 06/20/23 Admitting Diagnosis Gestational hypertension DS: Discharge Diagnosis Discharge Diagnosis (1) Normal vaginal delivery of first : Code(s): O80 - Encounter for full-term uncomplicated delivery Status: Acute (2) Gestational hypertension affecting first : Code(s): O13.9 - Gestational [-induced] hypertension without significant proteinuria, unspecified trimester Status: Acute OB - DS: Summary OB Procedures : NST, PIH Mgmt and Ultrasound OB Procedures Intrapartum: Spontaneous Vag Delivery OB Procedures: : None Peripartum Data Infant Delivery Method: Natural Vaginal Laceration Description: Vaginal complications: none [place] 1: Gender: Male Disposition of : home Status at Discharge Functional status at discharge: independent ambulation Overall status at discharge: patient is back to baseline Time Spent with Patient Time attestation: Total time spent providing and/or coordinating discharge services: Exam Const: General: cooperative, comfortable and no acute distress Orientation/consciousness: patient oriented x3 Resp: Effort & Inspection: normal respiratory effort Auscultation: clear to auscultation bilaterally Cardio: Rate: regular rate GI: Inspection: non-distended GI Palp: No abdominal tenderness and Yes Soft to palpation Auscultation: normal bowel sounds : Other: fundus firm Skin: General skin exam: normal color Neuro: General: patient oriented x3 Extrem: General: normal to inspection Psych: Appearance: grossly normal Affect: normal affect Attitude: cooperative DS: Data Data Completed and Pending Completed studies during hospitalization: Pending at discharge 06/18/23 16:19 Surgical [PTH] Routine Discharge Plan Discharge Attending physician on discharge: Carol Salter Consulting providers: Laurent Krishnan; Tato Posada; Suri Cadet Discharging Clinician: Carol Salter Anticipated Discharge Date/Time: 06/20/23 16:00 Patient Disposition: Home, Self-Care Activity: may shower and pelvic rest Diet: regular Discharge Instructions: Education: Mom and Baby Guide Given to: Mother Follow-Up: Call your delivering provider's office for an appointment to be seen in: 1 Week Mom and baby should come to the [facility] for the follow-up appointment. Appointment Date/Time: June 21, 2023 at 2:30 pm What to expect at your follow-up visit: Blood Pressure Check Physical Assessment Call [phone] if you are unable to keep your appointment time. BREAST CARE: * Wear a snug supportive bra. * For engorgement discomfort: Breast Feeding: * Apply warm moist washcloths * Express milk as needed to relieve engorgement * Wear loose clothing Bottle Feeding: * May apply ice packs * For sore nipples: * Identify correct latch-on * Apply warm moist washcloths before and after nursing * Air dry nipples after nursing * May apply Lansinoh cream to nipples PERINEAL CARE: * Until bleeding stops, use your clara bottle after urinating * Change your pad frequently throughout the day * You may take sitz baths several times a day (fill your bathtub with warm water and soak for 20 minutes.) Do NOT bathe in the water * No tub baths until seen by your physician - You may shower ACTIVITY: * Rest as much as possible. * Do not exercise or lift anything heavier than your baby (such as laundry or other children.) * Avoid stairs or driving as much as possible. * Do not put anything into the vagina. No douching, tampons, or sexual activity until seen by physician. NOTIFY PHYSICIAN IF YOU HAVE ANY QUESTIONS OR IF ANY OF THE FOLLOWING SYMPTOMS OCCUR: * If your episiotomy or incision becomes red, swollen, or more kevin
== END 2023-06-20 15:05 | disposition home or self-care (01) | DRG 807 ==
LOC: ANHOBOP 14:50 → ANHLDR 14:50 → ANHOB2 06-18 17:42
PROVIDERS: Admitting Provider Obstetrics & Gynecology; Visit Provider Obstetrics & Gynecology
DX: O13.4 Gestational [pregnancy-induced] hypertension without significant proteinuria, complicating childbirth (principal); Z37.0 Single live birth; O69.81X0 Labor and delivery complicated by cord around neck, without compression, not applicable or unspecified; O70.0 First degree perineal laceration during delivery; Z3A.37 37 weeks gestation of pregnancy; Z87.891 Personal history of nicotine dependence
CPT/HCPCS: 36415; 59025; 76819; 80053; 81001; 82570; 84156; 84550; 85025; 86592; 86850; 86900; 86901; 87086; 87088; 88307; A9270; J2590; J2795; J7120

== ENCOUNTER 2023-06-21 15:07 | Outpatient (CLI) | payer BC, SELFPAY ==
[2023-06-21] VITALS (100 sets, daily range): BP systolic 145–173; BP diastolic 72–111; PULSE 83–129; RESP 16–18; TEMP 37–37.2; O2SAT 93–100; BMI 44.0
--- NOTE | 2023-06-21 15:23 | PC.NURSE ---
1523: Taking over care on pt
[2023-06-21 15:46] LABS: Basophils Percent Auto 0.4 % (0.2-1.2); Eosinophils Absolute Auto 0.5 K/mm3 (0-0.3); Eosinophils Percent Auto 4.3 % (0-4.4); Hematocrit 36.8 % (37.0-47.0); Hemoglobin 11.8 g/dL (12.0-15.0); Immature Granulocyte Absolute 0.05 K/mm3 (0.00-0.031); Immature Granulocyte Percent A 0.5 % (0-0.5); Lymphocytes Absolute Auto 1.47 K/mm3 (0.9-3.2); Lymphocytes Percent Auto 13.8 % (18.3-44.2); Mean Corpuscular HGB Conc 32.1 g/dl (32-36); Mean Corpuscular Hemoglobin 31.2 pg (26-34); Mean Corpuscular Volume 97.4 fl (80-100); Monocytes Absolute Auto 0.7 K/mm3 (0.1-0.6); Monocytes Percent Auto 6.6 % (2.6-8.5); Neutrophils Percent Auto 74.4 % (45.5-73.1); Platelet Count Result 270 k/mm3 (150-375); Red Blood Count 3.78 M/mm3 (4.2-5.4); Red Cell Distribution Width 13.1 % (11.5-14.5); White Blood Count 10.7 K/mm3 (4.5-10.0)
[2023-06-21 15:58] LABS: Alanine Aminotransferase 28 U/L (6-35); Albumin Level 3.5 g/dL (3.5-5.1); Alkaline Phosphatase 153 U/L (38-126); Anion Gap 7 mmol/L (8-16); Aspartate Amino Transferase 34 U/L (14-36); Bilirubin,Total 0.4 mg/dL (0.2-1.3); Blood Urea Nitrogen 9 mg/dL (7-17); Calcium 9.2 mg/dL (8.4-10.2); Carbon Dioxide 24 mmol/L (22-30); Chloride 108 mmol/L (98-107); Estimated Glomerular Filt Rate > 60; Glucose 98 mg/dL (65-110); Potassium 4.1 mmol/L (3.4-5.0); Sodium 139 mmol/L (137-145); Uric Acid 5.2 mg/dL (2.5-7.5)
[2023-06-21] MEDS: LABETALOL HCL INJ 100 MG/20 ML VIAL 20 MG IV PUSH (16:00)
[2023-06-21] MEDS: MAGNESIUM SULF 4 GM/WATER100ML 4 GM/100 ML BAG IVPB (16:44)
[2023-06-21] MEDS: LACTATED RINGERS 1,000 ML 75 ML IV CONT (16:44)
--- NOTE | 2023-06-21 17:05 | PC.NURSE ---
1523: pt presents to unit from follow up visit. pt had high blood pressure during follow up visit. pt states she was induced at 37 4/7 for high blood pressure. pt states she was not on magnesium but did get sent home with procardia in which she took this morning. pt states she is extremely high anxiety and would like to be put on medication for this. pt denies any headache, dizziness, blurred vision, right upper quadrant pain, or any other symptoms related to pre eclampsia other than some swelling that she has had but states it has gotten better. Orders obtained from previous RN to draw labs and begin labetalol protocol if indicated.
--- NOTE | 2023-06-21 17:08 | PC.NURSE ---
1616: Dr. Felix updated on pt status, instructed to begin magnesium on pt. states he will be coming to hospital and talking with patient in regards to anxiety medication. Instructed to call with any severe range blood pressures
--- NOTE | 2023-06-21 17:32 | PC.NURSE ---
Dr. Felix at bedside, instructed to do blood pressures q1h.
--- NOTE | 2023-06-21 17:36 | PM.IMHP ---
H&P: HPI History of Present Illness Date/Time: 06/21/23 17:36 Chief Complaint: preeclampsia Narrative: 23 yo who presents 3 days after at 37w for gestational hypertension. Pt was placed on oral nifedipine and d/c home. Pt presented for outpatient BP check and was found to have severe range BP. Pt has had increased edema. She denies headaches, scotoma, RUQ pain. She reports adequate rest at home. She did reports palpitations at home. She has been diuresing at home. Review of Systems Review of Systems: All systems reviewed & are unremarkable except as noted in HPI and below PMFSH Past Medical History Medical History (Updated 06/21/23 @ 17:49 by Dharmesh Felix MD) Anxiety Dysuria No pertinent past medical history PIH ( induced hypertension) Surgical History Surgical History H/O gynecological procedure laura insertion - 2017 laura removal - 2020 No pertinent past surgical history Family History Family History Mother Hypertension Patient's mother is in good health Father Patient's father is in good health Sibling Patient's brother is in good health Grandparent Lung cancer Social History Social History Smoking status: Former smoker Tobacco type: e-cigarettes/vaping Second hand tobacco smoke exposure: No Smoking end date: 11/12/18 Alcohol intake: never Drinks per week: 0 Substance use: never Substance use type: does not use Lack of Transportation: YES Lack of Food: Never True Current Housing: I Have Housing Concerned About Future Housing: No Difficulty Paying Gas/Electric Bills: No Difficulty Paying for Meds: No Currently Unemployed: No Education: Associate Degree Difficulty w/ Childcare or Family Care: No Living arrangements: with family 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 Gender identity (if verbalized by the patient): Female Sexual Orientation (if Verbalized by the Patient): Straight or Heterosexual Spiritual care concerns: No Agree to blood products: Yes Meds Home Medications and Allergies Home Medications Medication Instructions Recorded Confirmed Type vitamins-iron fumarate 65 1 tablet PO DAILY 12/04/22 06/21/23 History mg iron-folic acid 1 mg tablet acetaminophen 500 mg tablet 1,000 mg PO TID #60 tabs 06/20/23 06/21/23 Rx docusate sodium 100 mg capsule 100 mg PO BID PRN Constipation 06/20/23 06/21/23 Rx #120 caps ibuprofen 600 mg tablet 600 mg PO Q6H PRN Cramping #40 tabs 06/20/23 06/21/23 Rx nifedipine 30 mg tablet,extended 30 mg PO QAM #60 tabs 06/20/23 06/21/23 Rx release 24 hr (Procardia XL) Allergies Allergy/AdvReac Type Severity Reaction Status Date / Time No Known Allergies Allergy Unknown Verified 06/13/23 10:20 Vital Signs Vital Signs - 24 hr 06/21/23 15:31 06/21/23 15:46 06/21/23 16:11 Temperature Pulse Rate 121 H 121 H 102 H Respiratory Rate Blood Pressure 168/111 H 173/100 H 154/84 H Pulse Oximetry Oxygen Delivery 06/21/23 16:15 06/21/23 16:30 06/21/23 16:51 Temperature Pulse Rate 105 H 105 H Respiratory Rate Blood Pressure 155/95 H 150/93 H Pulse Oximetry 97 Oxygen Delivery 06/21/23 16:55 06/21/23 16:56 06/21/23 17:01 Temperature Pulse Rate 97 102 H Respiratory Rate Blood Pressure 146/83 H 146/84 H Pulse Oximetry 97 98 Oxygen Delivery 06/21/23 17:06 06/21/23 17:11 06/21/23 17:16 Temperature Pulse Rate Respiratory Rate Blood Pressure Pulse Oximetry 97 97 98 Oxygen Delivery 06/21/23 17:27 06/21/23 17:32 06/21/23 16:50 Temperature 98.6 F Pulse Rate 105 H Respiratory Rate 16 Blood Pressure Pulse Oximetry 97 98 Oxygen Delivery 06/21/23 17:03
[2023-06-21] MEDS: ACETAMINOPHEN 500 MG TABLET 1000 MG PO (21:46)
[2023-06-21] MEDS: diphenhydrAMINE HCl CAP 25 MG CAPSULE PO (23:02)
[2023-06-22] VITALS (187 sets, daily range): BP systolic 121–169; BP diastolic 51–105; PULSE 77–126; RESP 18–19; TEMP 36.8–37.1; O2SAT 86–99
[2023-06-22] MEDS: MAGNESIUM SULF 20GM/WATER500ML 500 ML 50 MG IV CONT (03:36)
[2023-06-22] MEDS: LACTATED RINGERS 1,000 ML 75 ML IV CONT (05:20)
--- NOTE | 2023-06-22 08:02 | PC.NURSE ---
Dr. Felix at bedside. Orders received to give 200 labetalol PO BID. Patient in agreement with plan of care.
[2023-06-22] MEDS: SERTRALINE HCL 25 MG TABLET PO (08:42)
[2023-06-22] MEDS: LABETALOL HCL 100 MG TABLET 200 MG PO (08:43)
--- NOTE | 2023-06-22 12:21 | PC.NURSE ---
107- Dr. Felix called about an update on vital signs and patient status. Orders received to turn off magnesium.
--- NOTE | 2023-06-22 16:06 | PC.NURSE ---
1535- Dr. Felix updated on patient status, okay to discharge. Patient given instructions on when to return to hospital and has an appointment this week. Patient instructed to take labetalol 200 BID, patient in agreement with plan of care.
== END 2023-06-22 16:10 | disposition home or self-care (01) ==
LOC: ANHOBOP 15:19 → ANHOBPP 15:20
PROVIDERS: Student in an Organized Health Care Education/Training Program; Visit Provider Obstetrics & Gynecology
DX: O14.95 Unspecified pre-eclampsia, complicating the puerperium (principal); O99.345 Other mental disorders complicating the puerperium; F41.8 Other specified anxiety disorders; O13.9 Gestational [pregnancy-induced] hypertension without significant proteinuria, unspecified trimester; Z3A.00 Weeks of gestation of pregnancy not specified
CPT/HCPCS: 36415; 80053; 84550; 85025; 96361; 96365; 96366; 96375; 99199; A9270; J3475; J7120

== ENCOUNTER 2023-08-20 12:34 | Outpatient (CLI) | payer OTHER, SELFPAY ==
[2023-08-20 13:45] LABS: Beta HCG Quantitative < 2.39 mIU/ML
== END 2023-08-20 12:35 | disposition home or self-care (01) ==
LOC: ANHLAB 12:36
PROVIDERS: Visit Provider Obstetrics & Gynecology
DX: N92.6 Irregular menstruation, unspecified (principal)
CPT/HCPCS: 36415; 84702

== ENCOUNTER 2025-06-21 15:31 | Outpatient (CLI) | payer OTHER, SELFPAY ==
--- NOTE | ~2025-06-21 | MR_ITS ---
EXAMINATION:MRI brain with and without contrast: DATE: 06/21/2025 INDICATION: 25-year-old with history of headache. TECHNIQUE: MRI brain was performed including postcontrast series COMPARISON: MRI brain without contrast dated 07/23/2022. FINDINGS: No acute infarct on the diffusion series. No intracranial bleed or extra-axial collections on the T2*gradient sequence. No evidence of demyelinating lesion on the FLAIR sequence. No ventriculomegaly or midline shift. No abnormal enhancement on postcontrast study. Normal size pituitary gland without focal lesions of the fossa. Major vascular structures of the [place] are patent. Sinuses and mastoids do not show acute findings. IMPRESSION: 1. No evidence of acute ischemia, chronic ischemia or demyelinating lesions of the brain. 2. No intracranial space-occupying lesions. No abnormal enhancement on postcontrast study. Reviewed, dictated and finalized at location T. 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 No evidence of acute ischemia, chronic ischemia or demyelinating lesions of the brain. 2. No intracranial space-occupying lesions. No abnormal enhancement on postcont rast study.
== END 2025-06-21 15:32 | disposition home or self-care (01) ==
PROVIDERS: PCP Family Medicine Adolescent Medicine; Visit Provider Student in an Organized Health Care Education/Training Program
DX: R51.9 Headache, unspecified (principal)
CPT/HCPCS: 70553; A9577